=== PATIENT | female | born 1970 | race African-American/Black ===

== ENCOUNTER 2018-01-13 21:07 | Emergency (ER) | payer BC, OTHER ==
[2018-01-13] MEDS ORDERED: DEXAMETHASONE SOD PHOS 4 MG/ML VIAL IV (22:15)
[2018-01-13] MEDS: DEXAMETHASONE SOD PHOS 4 MG/ML VIAL PO (22:21)
== END 2018-01-13 22:35 | disposition home or self-care (01) ==
LOC: ER 22:35
DX: T78.40XA Allergy, unspecified, initial encounter (principal); X58.XXXA Exposure to other specified factors, initial encounter; Z90.710 Acquired absence of both cervix and uterus; Z88.2 Allergy status to sulfonamides; Z88.0 Allergy status to penicillin; Z88.1 Allergy status to other antibiotic agents
CPT/HCPCS: 99283; J1100